=== PATIENT | female | born 1965 | race Caucasian/White ===

== ENCOUNTER 2016-12-08 11:10 | Emergency (ER) | payer OTHER ==
[~2016-12-08] VITALS: Ht 154.9 cm; Wt 59.7 kg
[~2016-12-08 11:10] MED LIST: ATIVAN1 MG PO; BUPROPION XL150 MG PO; CELEBREX200 MG PO; CLONIDINE HCL0.1 MG PO; CYMBALTA60 MG PO; Ecotrin PO; FLONASE16 G1 BOTH NARES; FLOVENT 22120 INHALA IH; FLOVENT DISKUS1 DISK IH; FLUTICASONE PRO16 GM BOTH NARES; HARVONI 90-4001 EACH PO; HYDROCODON-ACE1 EAC7 PO; LEVOTHYROXINE; LEVOTHYROXINE125 MCG PO; LEVOTHYROXINE150 MCG PO; LIDOCAINE20 MG/1 M5 PO; LIDOCAINE700 MG TD; LISINOPRIL20 MG PO; LISINOPRIL40 MG PO; LITHIUM CARBON300 MG PO; METOPROLOL TART50 MG PO; MOTRIN600 MG PO; NAPROSYN500 MG PO; NICOTINE PATCH1 EAC2 TD; NO HOME MEDS; OMEPRAZOLE20 MG PO; OMEPRAZOLE40 M1 PO; PEN-VEE K,VEET500 MG PO; PHENADOZ25 MG RC; PREDNISONE20 MG PO; PREDNISONE50 MG PO; PRILOSEC20 MG; PROAIR HFA8.5 GM IH; ROBAXIN500 MG PO; SYNTHROID125 MCG PO; TOPAMAX25 MG PO; TOPAMAX50 MG; TRAMADOL HCL50 MG PO; TYLENOL EXTRA500 MG PO; TYLENOL WITH C1 EACH PO; ULTRAM50 MG PO; VALIUM5 MG PO; VITAMIN D250000 UNIT PO; ZITHROMAX500 MG PO; ZOLPIDEM TARTRA10 MG; ZOLPIDEM TARTRA10 MG PO
[2016-12-08 12:02] LABS: ADD MIUA? YES; BILIRUBIN NEGATIVE; BLOOD NEGATIVE; COLOR YELLOW ((YELLOW)); GLUCOSE (STRIP) NEGATIVE; KETONES NEGATIVE; LEUKOCYTES NEGATIVE; NITRITE NEGATIVE; PROTEIN (STRIP) NEGATIVE
[2016-12-08 12:16] LABS: BACTERIA NONE SEEN /HPF; CALCIUM OXALATE CRYSTALS 2+ /HPF; EPITHELIAL CELLS RARE /HPF; MUCUS TRACE /LPF; RED BLOOD CELLS 0-5 /HPF (0-5); UCUL ADDED? NO; WHITE BLOOD CELLS 0-5 /HPF (0-5)
[2016-12-08 13:10] LABS: HEMATOCRIT 47.6 % (36.0-46.0); MCH 31.5 PG (29.0-34.0); MCHC 34.5 G/DL (30.0-36.0); MCV 91.4 FL (83-99); MEAN PLAT.VOLUME 10.4 uM^3 (9.5-12.4); PLATELET COUNT 205 K/uL (156-360); RBC DIS.WIDTH-SD 40.3 % (39-53); RED BLOOD COUNT 5.21 M/uL (3.80-5.20); WHITE BLOOD COUNT 6.6 K/uL (4.1-10.2)
[2016-12-08 13:33] LABS: TROP-I INTERPRETATION NEGATIVE; TROPONIN-I < 0.01 ng/mL (0.0-0.30)
[2016-12-08 13:50] LABS: CHLORIDE 111 mEq/L (99-109); POTASSIUM 4.3 mEq/L (3.7-5.4); SODIUM 143 mEq/L (136-147)
[2016-12-08 13:52] LABS: GLUCOSE 108 mg/dL (70-99)
[2016-12-08 13:53] LABS: ANION GAP 11 MEQ/L (2-14)
[2016-12-08 13:55] LABS: GFR ESTIMATE (CALCULATED) > 59 mL/min/
[2016-12-08 13:56] LABS: UREA NITROGEN (BUN) 14 mg/dL (9-23)
[2016-12-08 15:42] LABS: TOTAL BILIRUBIN 0.8 mg/dL (0.0-1.0)
[2016-12-08 15:43] LABS: ALKALINE PHOSPHATASE 134 IU/L (3-129)
[2016-12-08 15:45] LABS: DIRECT BILIRUBIN 0.2 mg/dL (0.0-0.3)
[2016-12-08 15:46] LABS: LIPASE 27 U/L (1.0-51.0)
[2016-12-08] MEDS ORDERED: BENTYL20 MG PO (18:55)
[2016-12-08] MEDS ORDERED: PROTONIX40 MG PO (18:55)
[2016-12-08] MEDS ORDERED: NORCO 10/3251 TABLET PO (19:01)
[2016-12-08 19:19] VITALS: BP 150/74
== END 2016-12-08 19:21 | disposition home or self-care (01) ==
LOC: EME 11:10
DX: R10.10 Upper abdominal pain, unspecified (principal); R10.30 Lower abdominal pain, unspecified; K83.8 Other specified diseases of biliary tract; K86.89 Other specified diseases of pancreas; R11.0 Nausea; Z86.19 Personal history of other infectious and parasitic diseases; K74.60 Unspecified cirrhosis of liver; Z85.42 Personal history of malignant neoplasm of other parts of uterus; Z85.828 Personal history of other malignant neoplasm of skin; Z90.49 Acquired absence of other specified parts of digestive tract; Z90.710 Acquired absence of both cervix and uterus; E03.9 Hypothyroidism, unspecified; F17.200 Nicotine dependence, unspecified, uncomplicated
CPT/HCPCS: 71020; 74177; 80048; 80076; 81003; 83690; 84484; 85027; 93005; 99281; 99285; J2270; J2405; J7040

== ENCOUNTER 2017-05-14 10:59 | Emergency (ER) | payer OTHER ==
[~2017-05-14] VITALS: Ht 154.9 cm; Wt 58.6 kg
[~2017-05-14 10:59] MED LIST changes: +BENTYL20 MG PO; +NORCO 10/3251 TABLET PO; +PROTONIX40 MG PO
[2017-05-14 12:06] LABS: ADD MIUA? YES; BILIRUBIN NEGATIVE; BLOOD SMALL; COLOR STRAW ((YELLOW)); GLUCOSE (STRIP) NEGATIVE; KETONES NEGATIVE; LEUKOCYTES NEGATIVE; NITRITE NEGATIVE; PROTEIN (STRIP) NEGATIVE; SPECIFIC GRAVITY 1.006 (1.000-1.030); UROBILINOGEN 0.2 MG/DL (0.2-1.0)
[2017-05-14 12:09] LABS: BACTERIA NONE SEEN /HPF; EPITHELIAL CELLS RARE /HPF; MUCUS NONE SEEN /LPF; RED BLOOD CELLS 0-5 /HPF (0-5); WHITE BLOOD CELLS 0-5 /HPF (0-5)
[2017-05-14 12:44] LABS: BASOPHIL COUNT 0.1 K/uL (0-0.1); EOSINOPHIL (%) 0.9 % (0-5); EOSINOPHIL COUNT 0.1 K/uL (0-0.3); HEMATOCRIT 45.4 % (36.0-46.0); IMMATURE GRANULOCYTE (%) 0.2 % (0.0-0.7); INSTRUMENT ABS NEUTROPHIL CT 2.1 K/uL; LYMPHOCYTE COUNT 3.1 K/uL (1.0-2.8); MCH 32.6 PG (29.0-34.0); MCV 93.2 FL (83-99); MEAN PLAT.VOLUME 10.3 uM^3 (9.5-12.4); MONOCYTE (%) 6.2 % (3-12); MONOCYTE COUNT 0.4 K/uL (0-0.8); NEUTROPHIL COUNT 2.1 K/uL (1.8-6.4); PLATELET COUNT 207 K/uL (156-360); RBC DIS.WIDTH-CV 11.9 % (11.8-14.6); RBC DIS.WIDTH-SD 41.2 % (39-53); RED BLOOD COUNT 4.87 M/uL (3.80-5.20); WHITE BLOOD COUNT 5.6 K/uL (4.1-10.2)
[2017-05-14 12:55] LABS: CHLORIDE 111 mEq/L (99-109); POTASSIUM 4.4 mEq/L (3.7-5.4)
[2017-05-14 12:56] LABS: SODIUM 142 mEq/L (136-147)
[2017-05-14 12:58] LABS: GLUCOSE 88 mg/dL (70-99)
[2017-05-14 12:59] LABS: ANION GAP 9 MEQ/L (2-14)
[2017-05-14 13:00] LABS: TOTAL BILIRUBIN 0.6 mg/dL (0.0-1.0)
[2017-05-14 13:01] LABS: ALKALINE PHOSPHATASE 119 IU/L (3-129); GFR ESTIMATE (CALCULATED) > 59 mL/min/
[2017-05-14 13:02] LABS: UREA NITROGEN (BUN) 14 mg/dL (9-23)
[2017-05-14 13:05] LABS: LIPASE 32 U/L (1.0-51.0)
[2017-05-14] MEDS ORDERED: ZOFRAN4 MG PO (15:09)
[2017-05-14] MEDS ORDERED: BENTYL20 MG PO (15:09)
[2017-05-14 15:35] VITALS: BP 149/89
== END 2017-05-14 15:43 | disposition home or self-care (01) ==
LOC: EME 10:59
PROVIDERS: Emergency Medicine
DX: R10.31 Right lower quadrant pain (principal); I10 Essential (primary) hypertension; K21.9 Gastro-esophageal reflux disease without esophagitis; E03.9 Hypothyroidism, unspecified; K74.60 Unspecified cirrhosis of liver; B19.20 Unspecified viral hepatitis C without hepatic coma; F17.200 Nicotine dependence, unspecified, uncomplicated; Z90.49 Acquired absence of other specified parts of digestive tract; F32.9 Major depressive disorder, single episode, unspecified; F41.9 Anxiety disorder, unspecified; Z85.828 Personal history of other malignant neoplasm of skin; Z88.5 Allergy status to narcotic agent
CPT/HCPCS: 74177; 80053; 81003; 83690; 85025; 99281; 99285; J2270; J2405; J7030

== ENCOUNTER 2017-11-12 12:28 | Emergency (ER) | payer OTHER ==
[~2017-11-12] VITALS: Ht 154.9 cm; Wt 56.5 kg
[~2017-11-12 12:28] MED LIST changes: +ZOFRAN4 MG PO
[2017-11-12 14:43] LABS: BASOPHIL (%) 0.5 % (0-1); EOSINOPHIL COUNT 0.1 K/uL (0-0.3); HEMATOCRIT 43.5 % (36.0-46.0); HEMOGLOBIN 15.3 G/DL (11.9-15.5); IMMATURE GRANULOCYTE (%) 0.2 % (0.0-0.7); LYMPHOCYTE (%) 62.7 % (15-42); LYMPHOCYTE COUNT 3.8 K/uL (1.0-2.8); MCH 32.7 PG (29.0-34.0); MCHC 35.2 G/DL (30.0-36.0); MCV 92.9 FL (83-99); MONOCYTE (%) 4.6 % (3-12); MONOCYTE COUNT 0.3 K/uL (0-0.8); NEUTROPHIL COUNT 1.9 K/uL (1.8-6.4); PLATELET COUNT 191 K/uL (156-360); RBC DIS.WIDTH-CV 12.5 % (11.8-14.6); RBC DIS.WIDTH-SD 42.5 % (39-53); RED BLOOD COUNT 4.68 M/uL (3.80-5.20); WHITE BLOOD COUNT 6.1 K/uL (4.1-10.2)
[2017-11-12 14:52] LABS: ALBUMIN 4.4 g/dL (3.2-4.8)
[2017-11-12 14:53] LABS: CHLORIDE 109 mEq/L (99-109); MAGNESIUM 2.2 mg/dL (1.3-2.7); POTASSIUM 3.9 mEq/L (3.7-5.4); SODIUM 142 mEq/L (136-147)
[2017-11-12 14:55] LABS: GLUCOSE 103 mg/dL (70-99); TOTAL PROTEIN 7.2 g/dL (6.4-8.3)
[2017-11-12 14:57] LABS: TOTAL BILIRUBIN 0.5 mg/dL (0.0-1.0)
[2017-11-12 14:58] LABS: ALKALINE PHOSPHATASE 108 IU/L (3-129)
[2017-11-12 14:59] LABS: CREATININE 0.7 mg/dL (0.6-1.3); GFR ESTIMATE (CALCULATED) > 59 mL/min/
[2017-11-12 15:00] LABS: AST (GOT) 20 IU/L (2-34); UREA NITROGEN (BUN) 11 mg/dL (9-23)
[2017-11-12 15:02] LABS: ALT (GPT) 25 IU/L (3-49)
[2017-11-12 15:03] LABS: TROP-I INTERPRETATION NEGATIVE; TROPONIN-I < 0.01 ng/mL (0.0-0.30)
[2017-11-12 15:40] VITALS: BP 158/106
== END 2017-11-12 15:46 | disposition home or self-care (01) ==
LOC: EME 12:28
PROVIDERS: Emergency Medicine
DX: M25.512 Pain in left shoulder (principal); M54.16 Radiculopathy, lumbar region; I10 Essential (primary) hypertension; K21.9 Gastro-esophageal reflux disease without esophagitis; E03.9 Hypothyroidism, unspecified; K74.60 Unspecified cirrhosis of liver; J45.909 Unspecified asthma, uncomplicated; G43.909 Migraine, unspecified, not intractable, without status migrainosus; F41.9 Anxiety disorder, unspecified; F32.9 Major depressive disorder, single episode, unspecified; F31.9 Bipolar disorder, unspecified; F17.200 Nicotine dependence, unspecified, uncomplicated; Z85.42 Personal history of malignant neoplasm of other parts of uterus; Z85.43 Personal history of malignant neoplasm of ovary; Z85.828 Personal history of other malignant neoplasm of skin; Z90.710 Acquired absence of both cervix and uterus; Z90.49 Acquired absence of other specified parts of digestive tract; Z88.5 Allergy status to narcotic agent; Z88.8 Allergy status to other drugs, medicaments and biological substances
CPT/HCPCS: 71046; 73030; 80053; 83735; 84443; 84484; 85025; 93005; 99281; 99284